=== PATIENT | female | born 1995 ===

== ENCOUNTER 2018-10-20 21:01 | Emergency (ER) | payer OTHER ==
[2018-10-20 21:16] VITALS: BP 120/81; PULSE 84; TEMP 98.5; BMI 43.4
--- NOTE | 2018-10-20 22:28 | PDOC ---
History of Present Illness - General History Source: Patient Exam Limitations: No Limitations - History of Present Illness Initial Comments: 10/20/18 22:35 The patient is a 22 year old female, with a significant past medical history of sleep apnea (recent diagnosis), who presents to the ED complaining of sore throat, right knee pain mid back pain. She notes that she feels that her tonsils are swollen and she has had a change in her voice but denies any current trouble / pain when she swallows. She states that she had a strep throat test yesterday that was negative. 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 She notes that she has been limping during for the past few days secondary to knee pain. The patient denies chest pain, shortness of breath, headache and dizziness. Denies fever, chills, nausea, vomiting, diarrhea or constipation. Allergies: None Past surgical history: None reported Social History: No alcohol, tobacco or drug use reported <Aba Keating - Last Filed: 10/20/18 23:15> <Jennifer Richter - Last Filed: 10/21/18 03:02> - General Chief Complaint: Pain Stated Complaint: RT KNEE PAIN Time Seen by Provider: 10/20/18 21:02 Past History <Aba Keating - Last Filed: 10/20/18 23:15> - Past Medical History COPD: No Other medical history: ARTHRITIS - Suicide/Smoking/Psychosocial Hx Smoking History: Never smoked Have you smoked in the past 12 months: No Information on smoking cessation initiated: No Hx Alcohol Use: No Drug/Substance Use Hx: No Substance Use Type: None <Jennifer Richter - Last Filed: 10/21/18 03:02> - Past Medical History Allergies/Adverse Reactions: Allergies Allergy/AdvReac Type Severity Reaction Status Date / Time No Known Allergies Allergy Verified 10/20/18 21:02 Home Medications: Ambulatory Orders Diclofenac Sodium [Voltaren -] 75 mg PO BID PRN #10 tablet. 10/20/18 Ibuprofen [Advil -] 400 mg PO ONCE PRN 10/20/18 Review of Systems - Review of Systems Able to Perform ROS?: Yes Comments:: 10/20/18 22:32 GENERAL/CONSTITUTIONAL: No fever or chills. No weakness. HEAD, EYES, EARS, NOSE AND THROAT: (+) Sore throat. No change in vision. No ear pain or discharge. GASTROINTESTINAL: No nausea, vomiting, diarrhea or constipation. GENITOURINARY: No dysuria, frequency, or change in urination. CARDIOVASCULAR: No chest pain or shortness of breath. RESPIRATORY: No cough, wheezing, or hemoptysis. MUSCULOSKELETAL: (+) Right knee pain, mid back pain. No joint or muscle swelling or pain. No neck pain. SKIN: No rash NEUROLOGIC: No headache, vertigo, loss of consciousness, or change in strength/ sensation. ENDOCRINE: No increased thirst. No abnormal weight change. HEMATOLOGIC/LYMPHATIC: No anemia, easy bleeding, or history of blood clots. ALLERGIC/IMMUNOLOGIC: No hives or skin allergy. <Aba Keating - Last Filed: 10/20/18 23:15> *Physical Exam - Vital Signs Last Vital Signs Temp Pulse Resp BP Pulse Ox 98.5 F 84 20 120/81 98 10/20/18 21:02 10/20/18 21:02 10/20/18 21:02 10/20/18 21:02 10/20/18 21:02 - Physical Exam Comments: 10/20/18 22:32 Constitutional: Awake, alert, oriented. No acute distress. Head: Normocephalic. Atraumatic Eyes: PERRL. EOMI. Conjunctivae are not pale. ENT: Mucous membranes are moist and intact. (+) Hoarse voice. Minimal erythemaotus pharynx with 2+ edematous tonsil, no exudates, no asymmetry, no masses, viably tender cervical adenopathy, no strider or masses of the neck. Cardiovascular: Regular rate. Regular rhythm. S1, S2 regular. Distal pulses are 2+ and symmetric. Pulmonary/Chest: (+) Hoarse voice but No evidence of respiratory distress. Clear to auscultation bilaterally No wheezing, rales or rhonchi. Abdominal: Soft and non-distended. There is no tenderness. No rebound, guarding or rigidity. No organomegaly. No palpable masses. Good bowel sounds. Back: No CVA tenderness. Musculoskeletal: (+) Right knee minimal edema, minimal tenderness with palpation of the sub patellar region, no direct tenderness of the patellar was noted, no ligament instability. No pain with stress testing of medial or lateral ligaments. No ecchymosis or deformity seen. Skin: Skin is warm and dry. No petechiae. No purpura. Neurological: Alert and oriented to person, place, and time. Cranial nerves II -XII are grossly intact. Normal speech. Strength is grossly symmetric. No sensory deficits. Psychiatric: Good eye contact. Normal interaction, affect and behavior. <Aba Keating - Last Filed: 10/20/18 23:15> - Vital Signs Last Vital Signs Temp Pulse Resp BP Pulse Ox 98.5 F 84 20 120/81 98 10/20/18 21:02 10/20/18 21:02 10/20/18 21:02 10/20/18 21:02 10/20/18 21:02 <Jennifer Richter - Last Filed: 10/21/18 03:02> Moderate Sedation - Procedure Monitoring Vital Signs: Procedure Monitoring Vital Signs Temperature 98.5 F 10/20/18 21:02 Pulse Rate 84 10/20/18 21:02 Respiratory Rate 20 10/20/18 21:02 Blood Pressure 120/81 10/20/18 21:02 O2 Sat by Pulse Oximetry (%) 98 10/20/18 21:02 <Aba Keating - Last Filed: 10/20/18 23:15> - Procedure Monitoring Vital Signs: Procedure Monitoring Vital Signs Temperature 98.5 F 10/20/18 21:02 Pulse Rate 84 10/20/18 21:02 Respiratory Rate 20 10/20/18 21:02 Blood Pressure 120/81 10/20/18 21:02 O2 Sat by Pulse Oximetry (%) 98 10/20/18 21:02 <Jennifer Richter - Last Filed: 10/21/18 03:02> Medical Decision Making - Medical Decision Making Documentation has been prepared under my direction and personally reviewed by me in its entirety. I attest that this documented accurately reflects all work, treatment, procedures and medical decision making performed by me. As noted above, this 22-year-old woman presents with several day history of sore throat (now resolved) and hoarseness; also, she presents with injury to her right knee sustained 2 days ago and classmate fell then knee. No previous history of right knee injury. Exam as noted above. Respiratory exam reveals edematous tonsils but minimal erythema and no exudates. Quick strep yesterday was negative. Right knee exam notable for mild tenderness but no significant edema/deformity/ecchymosis. Clinical presentation most consistent with viral laryngitis and right knee sprain. Since it is extremely unlikely that there is any bony injury in her right knee (patient has been weightbearing with some discomfort but no disabling pain), x-ray will be deferred. Knee immobilizer placed. Patient will be given referral information for orthopedic group([facility]) if she has persistent pain. Prescription for diclofenac 75 mg twice a day as needed for pain will be sent to her pharmacy. <Jennifer Richter - Last Filed: 10/21/18 03:02> *DC/Admit/Observation/Transfer - Attestations Scribe Attestion: 10/20/18 22:31 Documentation prepared by Aba Keating, acting as certified medical transcriptionist for Jennifer Richter MD <Aba Keating - Last Filed: 10/20/18 23:15> <Jennifer Richter - Last Filed: 10/21/18 03:02> Diagnosis at time of Disposition: Viral laryngitis Right knee sprain Qualifiers: Encounter type: initial encounter Involved ligament of knee: unspecified collateral ligament Qualified Code(s): S83.401A - Sprain of unspecified collateral ligament of right knee, initial encounter - Discharge Dispostion Disposition: HOME Condition at time of disposition: Stable - Prescriptions Prescriptions: Diclofenac Sodium [Voltaren -] 75 mg PO BID PRN #10 tablet.dr CABRERA Reason: Pain - Referrals Referrals: Sudheer Sigala MD [Staff Physician] - - Patient Instructions Printed Discharge Instructions: Knee Sprain, DI for Laryngitis Additional Instructions: Knee immobilizer on right side during the day for the next week Diclofenac 75 mg twice a day as needed for pain (take with food); do not take Motrin or Aleve when taking diclofenac Follow-up with orthopedic group ( ) if knee pain persists for more than 1 week Drink plenty fluids, including honey+lemon tea as you are currently doing/rest Return to ER if you have worsening pain/high fever/difficulty breathing
== END 2018-10-20 22:34 | disposition home or self-care (01) ==
LOC: FER 21:01
DX: S83.401A Sprain of unspecified collateral ligament of right knee, initial encounter (principal); J04.0 Acute laryngitis; X58.XXXA Exposure to other specified factors, initial encounter; Y93.89 Activity, other specified; Y92.89 Other specified places as the place of occurrence of the external cause
CPT/HCPCS: 99282-25